=== PATIENT | male | born 1975 | race African-American/Black ===

== ENCOUNTER 2020-07-21 23:24 | Emergency (ER) | payer SELFPAY ==
[~2020-07-21] VITALS: Ht 162.6 cm; Wt 65.8 kg
[2020-07-21 23:29] VITALS: BP 141/79
[2020-07-21] MEDS ORDERED: Bacitracin Oint UD TOPIC ONE (23:30)
--- NOTE | 2020-07-21 23:31 | Emergency Room Report ---
History of Present Illness General Chief Complaint: To Be Triaged Present Illness HPI 45-year-old male with no past medical history here for medical clearance. Patient is in police custody. He is to be taken to custodial and is here for medical clearance for an open wound on his left forearm. Patient says that he suffered a laceration on his left forearm last week and he was seen at [facility]. Patient said that he received IV antibiotics and was discharged on p.o. antibiotics. He took 2 days of the p.o. antibiotics and then "I lost the rest." Denies fevers, chills, chest pain, palpitation, shortness of breath, back pain, abdominal pain, nausea, vomiting, diarrhea, dysuria, bleeding, dehiscence, drainage, surrounding skin irritation. Allergies: Coded Allergies: No Known Allergies (Unverified , 07/21/20) Review of Systems All Other Systems: negative except mentioned in HPI Physical Exam Sp02 EP Interpretation: reviewed, normal General Appearance: no apparent distress, alert, non-toxic Head: normocephalic, atraumatic Eyes: bilateral eye normal inspection, bilateral eye PERRL ENT: hearing grossly normal, normal pharynx, no angioedema, normal voice Neck: full range of motion, supple/symm/no masses Respiratory: chest non-tender, lungs clear, normal breath sounds, speaking full sentences Cardiovascular #1: regular rate, rhythm, no edema Cardiovascular #2: 2+ carotid (R), 2+ carotid (L), 2+ radial (R), 2+ radial (L), 2+ dorsalis pedis (R), 2+ dorsalis pedis (L) Gastrointestinal: normal bowel sounds, non tender, soft, non-distended, no guarding, no rebound Rectal: deferred Genitourinary: normal inspection, no CVA tenderness Musculoskeletal: back normal, normal range of motion, gait/station normal, non- tender Neurologic: alert, motor strength/tone normal, oriented x3, sensory intact, responsive, speech normal Psychiatric: judgement/insight normal, memory normal, mood/affect normal, no suicidal/homicidal ideation Skin: other - Approximately 5 cm healing skin wound on the flexor surface of left forearm. No surrounding erythema or induration. No active drainage or bleeding. Neurovascularly intact Lymphatic: no adenopathy Medical Decision Making Diagnostic Impression: Primary Impression: Medical clearance for incarceration Additional Impression: Open arm wound ER Course ddx: lymphadenopathy/lymphangitis, sebaceous/ganglion cyst, abscess, cellulitis, tumor, insect bite, substance abuse, folliculitis 45-year-old male here for medical clearance for a wound check of the left forearm wound. Patient had received antibiotics and updated tetanus shot at [facility] last week for this wound. Did not receive sutures or sheela. The wound appears to be healing well without any evidence of cellulitis or abscess or necrotizing fasciitis. Patient was neurovascular intact. Had normal vital signs in the emergency department. In no acute distress. Patient was medically cleared for incarceration. Wound was dressed with bacitracin cream and nonadherent dressing. Wound appears to be healing well thus there is no indication for antibiotic treatment at this time. Patient was told to return with any worsening symptoms. He expressed understanding and was discharged to custodial in police custody. Disposition: LAW ENFORCEMENT IN CUST Condition: Stable Referrals: [facility] Departure Forms: Shelter Clearance Patient Instructions: Wound Care Germán Tinsley M.D. Jul 21, 2020 23:31
--- NOTE | 2020-07-21 23:34 | NUR ---
Nurse Note: Pt brought in by JESSICA c/o LT FA lac that occured over 1 week ago. Pt stated he cut it on a metal object; got treated at [facility] on time of inital occurance. Pt with JESSICA
[2020-07-21 23:40] VITALS: BP 141/79
--- NOTE | 2020-07-21 23:40 | NUR ---
ED Nurse Note: Pt cleared by health care Provider for discharge. Site cleaned, applied bactracin and dressed with 4x4 and kerlix. DC instructions/prescription was given and explained to pt and verbalized understanding of teachings. Instructed pt to follow up with PCP within one week. All medical deviecs such as ID band removed. Pt is AAO x4, ambulatory and left with all personal belongings with [facility].
== END 2020-07-21 23:40 ==
LOC: EMR 23:38
DX: S51.802A Unspecified open wound of left forearm, initial encounter (principal); X58.XXXA Exposure to other specified factors, initial encounter; Y92.9 Unspecified place or not applicable
CPT/HCPCS: 99282